=== PATIENT | male | born 1995 | race Caucasian/White ===

== ENCOUNTER 2019-01-04 12:29 | Emergency (ER) | payer OTHER ==
[2019-01-04 12:38] VITALS: BP 130/83
--- NOTE | 2019-01-04 12:57 | UC ---
Respiratory Complaint HPI - HPI Summary HPI Summary: cough x 2 weeks cough is dry , worse with deep breathing better with res cold symptoms for 2 months with nasal congestion , pnd, sinus pressure no fever, no chills - History of Current Complaint Chief Complaint: UCGeneralIllness Stated Complaint: COUGH,CHEST CONGESTION Time Seen by Provider: 01/04/19 12:45 Hx Obtained From: Patient Onset/Duration: Gradual Onset, Lasting Weeks - 2, Still Present Timing: Constant Severity Initially: Moderate Severity Currently: Moderate Pain Intensity: 7 Character: Cough: Nonproductive Aggravating Factors: Exertion, Deep Breaths Alleviating Factors: Nothing Associated Signs And Symptoms: Positive: Chills, Wheezing, URI, Nasal Congestion. Negative: Dyspnea, Fever - Allergies/Home Medications Allergies/Adverse Reactions: Allergies Allergy/AdvReac Type Severity Reaction Status Date / Time cetirizine [From Zyrtec] Allergy Shortness Verified 01/04/19 12:43 of Breath citalopram [From Celexa] Allergy Nausea Verified 01/04/19 12:43 clindamycin Allergy Nausea Verified 01/04/19 12:43 diphenhydramine Allergy Shortness Verified 01/04/19 12:43 [From Benadryl] of Breath fluticasone [From Flonase] Allergy Shortness Verified 01/04/19 12:43 of Breath loratadine [From Claritin] Allergy Shortness Verified 01/04/19 12:43 of Breath Penicillins Allergy Numbness Verified 01/04/19 12:43 And Tingling propranolol Allergy See Comment Verified 01/04/19 12:43 quetiapine [From Seroquel] Allergy Palpitation Verified 01/04/19 12:43 s sertraline [From Zoloft] Allergy Anxiety Verified 01/04/19 12:43 Home Medications: Home Medications Albuterol 0.5% CONC NEB.DEREK* 1 inh INH DAILY 01/04/19 [History Confirmed ] Albuterol HFA INHALER* [Ventolin HFA Inhaler*] 1 puff INH Q8H 01/04/19 [History Confirmed 01/04/19] Mirtazapine TAB* [Remeron TAB*] 1 tab PO QPM 01/04/19 [History Confirmed ] clonazePAM [Klonopin] 1 tab PO BID 01/04/19 [History Confirmed 01/04/19] PMH/Surg Hx/FS Hx/Imm Hx Respiratory History: Asthma Psychological History: Anxiety, Depression, Post Traumatic Stress Disorder - Surgical History Surgical History: None - Family History Known Family History: Negative: Diabetes - Social History Alcohol Use: None Substance Use Type: None Smoking Status (MU): Never Smoked Tobacco Review of Systems All Other Systems Reviewed And Are Negative: Yes Constitutional: Positive: Negative Skin: Positive: Negative Eyes: Positive: Negative ENT: Positive: Nasal Discharge, Sinus Congestion, Sinus Pain/Tenderness Respiratory: Positive: Cough Cardiovascular: Positive: Negative Is Patient Immunocompromised?: No Physical Exam Triage Information Reviewed: Yes Appearance: Well-Appearing, No Pain Distress, Well-Nourished Vital Signs: Initial Vital Signs Temp 97.9 F 01/04/19 12:33 Pulse 96 01/04/19 12:33 Resp 20 01/04/19 12:33 BP 130/83 01/04/19 12:33 Pulse Ox 100 01/04/19 12:33 Vital Signs Reviewed: Yes Eye Exam: Normal Eyes: Positive: Conjunctiva Clear ENT: Positive: Normal ENT inspection, Hearing grossly normal, Pharynx normal, Nasal drainage, TMs normal Neck exam: Normal Neck: Positive: Supple, Nontender, No Lymphadenopathy Respiratory: Positive: Chest non-tender, Lungs clear, Normal breath sounds, No respiratory distress Cardiovascular: Positive: RRR, No Murmur, Pulses Normal Abdominal Exam: Normal Diagnostics - Radiology No standard instances Radiology Interpretation Completed By: Radiologist Summary of Radiographic Findings: chest xray report : IMPRESSION: NO ACTIVE CARDIOPULMONARY DISEASE. Respiratory Course/Dx - Differential Dx/Diagnosis Provider Diagnosis: Bronchitis Discharge ED - Sign-Out/Discharge Documenting (check all that apply): Patient Departure All imaging exams completed and their final reports reviewed: Yes - Discharge Plan Condition: Stable Disposition: HOME Patient Education Materials: Acute Bronchitis (ED) Additional Instructions: follow up with your pcp in one week - Billing Disposition and Condition Condition: STABLE Disposition: Home
--- OUTSIDE RECORDS SUMMARY | 2019-01-04 13:56 | XMS REPORT | Continuity of Care Document ---
:1995 External Reference #:[id number] Author Name Pramod Tay MD Address [address] [place] [address] Care Team Providers Name Role Phone Ganesh Pascual MD - Psychiatry Care Team Information [employer] Noemi Benitez - Psychiatry Care Team Information [employer] [phone] Joselin Zuñiga PA - Medical Care Team Information [employer] [phone] Problems Active Problems Provider Date Borderline personality disorder Clare Martin PA-C Onset: 02/20/2016 Lorenzo de la Tourette's syndrome Lucía Smith RPAC Onset: 01/11/2017 Panic disorder Clare Martin PA-C Onset: 02/20/2016 Note: near psychosis Irritable bowel syndrome Clare Martin PA-C Onset: 02/20/2016 Gastroesophageal reflux disease Clare Martin PA-C Onset: 02/20/2016 Essential hypertension Clare Martin PA-C Onset: 03/11/2016 Note: associated with anxiety Cystic acne Lucía Smith RPAC Onset: 11/12/2016 Intermittent palpitations Lucía Smith RPAC Onset: 11/12/2016 Note: isolated PACs/PVCs Dental caries Lucía Smith RPAC Onset: 03/30/2017 Vitamin D deficiency Lucía Smith RPAC Onset: 05/26/2017 Anxiety state Lucía Smith RPAC Onset: 07/27/2017 Constipation Pramod Billings MD Onset: 12/14/2017 Irritable bowel syndrome characterized by Pramod Billings MD Onset: 2017 constipation Abdominal pain Pramod Billings MD Onset: 12/14/2017 Social History Type Date Description Comments Sex Unknown Tobacco Use Start: Unknown Never Smoked Cigarettes Smokeless Tobacco Never Used Smokeless Tobacco ETOH Use Denies alcohol use Recreational Drug Use Denies Drug Use Tobacco Use Start: Unknown Patient has never smoked Smoking Status Reviewed: 12/30/18 Patient has never smoked Allergies, Adverse Reactions, Alerts Active Allergies Reaction Severity Comments Date Lamotrigine unsure 02/19/2016 Sertraline 02/19/2016 Citalopram Increased anxiety 02/19/2016 Quetiapine unsure 02/19/2016 Loratadine 02/20/2016 Amoxicillin 09/02/2018 Clindamycin 09/02/2018 Medications Active Medications SIG Qnty Indications Ordering Date Provider Prednisolone Acetate 1 drop right eye 5ml H20.011 Pramod Tay MD 2018 4 times daily 1% Suspension Xylimelts 1 melt in mouth 3 90units Shauna Lux, 10/14/2018 550mg Disk times a day as , PHD needed Artificial Tears instill 1 drop in 15units H04.123 Pramod Tay MD 2018 1.4% each eye four Solution times a day as needed for dryness Ventolin HFA 2 puffs every 4 1inhaler Christopher Logan MD 09/23/2016 hours as needed 108(90Base) mcg/Act dyspnea Aerosol Albuterol Sulfate nebulized every 4 90ml J45.998 Christopher Logan MD 2016 hours as needed (2.5mg/3ML) 0.083% Nebulizer Clonazepam 1 by mouth twice 60tabs Dexter Hobson, 03/19/2016 1mg daily as needed M.D. Tablets ::: teva brand MDD 2 Mirtazapine take 1 tablet by Noemi Benitez 15mg mouth once daily Tablets at bedtime History Medications Miralax 1 scoops in 765units K59.00 Maxine Roper, 11/29/2018 - 3350NF Powder fluid 1x/day 12/27/2018 Acetylcysteine 3ml po bid for 180ml R68.2 Shauna Lux, 10/14/2018 - 200mg/ml thick mucus , PHD 10/19/2018 Solution T43.025A H04.123 Nystatin swish and gargle 180ml B37.0 Maci, 10/14/2018 - and swallow 5ml MD Shauna, 12/27/2018 032076Rjci/ML twice a day as PHD Suspension needed Diflucan 1 tab by mouth as 1tabs Maci, 10/14/2018 - 150mg once can repeat in MD Shauna, 12/27/2018 Tablets a week as needed PHD Vitamin D-3 once a day 90caps Christopher Logan MD 09/11/2018 - 1000Unit 10/11/2018 Capsules Clotrimazole 5 times a day for 70units B37.0 Christopher Logan MD 09/08/2018 - 10mg 14 days. do not 09/09/2018 Rosa chew or swallow whole tablet. Nystatin swish and gargle 180ml B37.0 Maci, 09/02/2018 - and swallow 5ml MD Shauna, 10/11/2018 521908Idxp/ML twice a day as PHD Suspension needed Augmentin ES-600 875mg twice a day 150ml Christopher Logan MD 08/16/2018 - for 10 days 08/23/2018 600-42.9mg/5ML Suspension Rec Senna-Docusate 1 by mouth twice a 15tabs K59.00 Christopher Logan MD 2018 - Sodium day constipation 08/02/2018 8.6-50mg Tablets Miralax 1 capful dissolve 238gm K59.00 Christopher Logan MD 08/02/2018 - 3350NF Powder in 4-8 oz of liquid 10/11/2018 by mouth every day as needed Immunizations CPT Code Status Date Vaccine Lot # 41291 Given Unknown Tdap injection Vital Signs Date Vital Result Comment 12/27/2018 11:31am Respiratory Rate 18 /min Height 67 inches 5'7" Weight 215.00 lb BMI (Body Mass Index) 33.7 kg/m2 BSA (Body Surface Area) 2.09 m2 [place] body weight in kilograms 67 kg 11/29/2018 11:36am BP Systolic Sitting Resting Right Arm 124 mmHg BP Diastolic Sitting Resting Right Arm 72 mmHg Body Temperature 98.6 F Heart Rate 90 /min Respiratory Rate 18 /min Height 67 inches 5'7" Weight 211.25 lb BMI (Body Mass Index) 33.1 kg/m2 BSA (Body Surface Area) 2.07 m2 [place] body weight in kilograms 67 kg Results Test Acquired Date Facility Test Result H/L Range Note CBC 11/02/2018 [facility] White Blood 6.7 K/uL Normal 3.4-10.5 1 W/Automated [address] [place] [address] [phone] Red Blood Count 5.10 M/uL Normal 4.20-5.80 Hemoglobin 15.7 gm/dL Normal 12.8-17.0 Hematocrit 44.0 % Normal 38.0-48.0 Mean Cell Volume 86.3 fl Normal 80.0-96.0 Mean Corpuscular HGB 30.8 pg Normal 27.0-33.0 Mean Corpuscular HGB Conc 35.7 g/dL Normal 31.7-36.0 Platelet Count 251 K/uL Normal 155-360 Red Cell Distri Width SD 38.5 fl Normal 36-51 Red Cell Distri Width %CV 12.3 % Normal 11.6-15.8 Mean Platelet Volume 9.8 fl Normal 6.6-10.6 Neut% 51.7 % Normal 33.0-73.0 Lymph % 35.9 % Normal 20.0-42.0 [place] % 9.4 % Normal 0.0-10.0 Eo% 2.1 % Normal 0.0-6.6 Bas% 0.6 % Normal 0.0-1.1 Immature Grans 0.3 % Normal 0.0-5.0 NRBC % 0.0 /100WBC < 10/ 100 WBC Neut# 3.48 K/uL Normal 1.8-7.0 Lymph # 2.41 K/uL Normal 1.0-4.0 [place] # 0.63 K/uL Normal 0.0-0.8 Eos # 0.14 K/uL Normal 0.0-0.5 Baso # 0.04 K/uL Normal 0.0-0.1 Immature Grans Absolute 0.02 K/uL NRBC # 0.00 K/uL Comprehensive 11/02/2018 [facility] Glucose 105 mg/dL Normal 74-106 Metabolic Panel [address] [place] [address] [phone] BUN 8 mg/dL Normal 7-18 Creatinine 1.0 mg/dL Normal 0.6-1.3 Glom Filtration Rate, Estimate >60 mL/min >60 If >60 mL/min >60 2 BUN/Creat 8.0 ratio Sodium 141 mmol/L Normal 136-145 Potassium 3.6 mmol/L Normal 3.5-5.1 Chloride 107 mmol/L Normal 98-107 Carbon Dioxide 28 mmol/L Normal 21-32 Anion Gap 6 mEq/L Low 8-16 Calcium 9.3 mg/dL Normal 8.5-10.1 Total Protein 8.7 g/dL High 6.4-8.2 Albumin 4.1 g/dL Normal 3.4-5.0 Globulin 4.6 g/dL High 1.9-4.3 Alb/Glob 0.9 ratio Bilirubin,Total 0.7 mg/dL Normal 0.2-1.0 Sgot/Ast 18 U/L Normal 15-37 SGPT/Alt 27 U/L Normal 12-78 Alkaline Phosphatase 104 U/L Normal 45-117 Laboratory test 11/02/2018 [facility] Troponin-I < 0.015 [address] ng/[place] [address] [phone] CBC W/Automated 09/17/2018 [facility] White Blood 10.8 K/uL High 3.4-[address] Count 0.5 [place] [address] [phone] Red Blood Count 5.09 M/uL Normal 4.20-5.80 Hemoglobin 15.7 gm/dL Normal 12.8-17.0 Hematocrit 44.7 % Normal 38.0-48.0 Mean Cell Volume 87.8 fl Normal 80.0-96.0 Mean Corpuscular HGB 30.8 pg Normal 27.0-33.0 Mean Corpuscular HGB Conc 35.1 g/dL Normal 31.7-36.0 Platelet Count 248 K/uL Normal 155-360 Red Cell Distri Width SD 39.5 fl Normal 36-51 Red Cell Distri Width %CV 12.2 % Normal 11.6-15.8 Mean Platelet Volume 9.8 fl Normal 6.6-10.6 Neut% 70.8 % Normal 33.0-73.0 Lymph % 20.0 % Normal 20.0-42.0 Cidra % 7.3 % Normal 0.0-10.0 Eo% 1.2 % Normal 0.0-6.6 Bas% 0.3 % Normal 0.0-1.1 Immature Grans 0.4 % Normal 0.0-5.0 NRBC % 0.0 /100WBC < 10/ 100 WBC Neut# 7.64 K/uL High 1.8-7.0 Lymph # 2.16 K/uL Normal 1.0-4.0 Cidra # 0.79 K/uL Normal 0.0-0.8 Eos # 0.13 K/uL Normal 0.0-0.5 Baso # 0.03 K/uL Normal 0.0-0.1 Immature Grans Absolute 0.04 K/uL NRBC # 0.00 K/uL Comprehensive 09/17/2018 [facility] Glucose 105 mg/dL Normal 74-106 Metabolic Panel [address] [place] [address] [phone] BUN 8 mg/dL Normal 7-18 Creatinine 0.9 mg/dL Normal 0.6-1.3 Glom Filtration Rate, Estimate >60 mL/min >60 If >60 mL/min >60 5 BUN/Creat 8.8 ratio Sodium 138 mmol/L Normal 136-145 Potassium 4.0 mmol/L Normal 3.5-5.1 Chloride 106 mmol/L Normal 98-107 Carbon Dioxide 27 mmol/L Normal 21-32 Anion Gap 5 mEq/L Low 8-16 Calcium 9.4 mg/dL Normal 8.5-10.1 Total Protein 8.7 g/dL High 6.4-8.2 Albumin 3.9 g/dL Normal 3.4-5.0 Globulin 4.8 g/dL High 1.9-4.3 Alb/Glob 0.8 ratio Bilirubin,Total 0.5 mg/dL Normal 0.2-1.0 Sgot/Ast 15 U/L Normal 15-37 SGPT/Alt 31 U/L Normal 12-78 Alkaline Phosphatase 102 U/L Normal 45-117 Laboratory test 09/17/2018 [facility] Lipase 59 U/L Normal 56-289 finding [address] [place] [address] [phone] Ua RFX Micro & 09/17/2018 [facility] Urine Color YELLOW Yellow Culture II [address] [place] [address] [phone] Urine Clarity CLEAR Clear Urine Glucose - Dipstick NEGATIVE mg/dL Negative Urine Bilirubin - Dipstick NEGATIVE Negative Urine Ketone NEGATIVE mg/dL Negative Urine Specific [place] 1.010 Normal 1.010-1.030 Urine Blood NEGATIVE Negative Urine PH 5.5 Low 6.5-7.5 Urine Protein - Dipstick NEGATIVE mg/dL Negative Urine Urobilinogen - Dipstick 0.2 E.U./dL Normal 0.2-1.0 Urine Nitrite - Dipstick NEGATIVE Negative Urine Leuk Esterase NEGATIVE Negative Source: URINE, CLEAN CAT <SEE NOTE> 6 [facility] Vitamin 10.9 Low 30.0-100.0 7, 8 test finding [address] [facility] D,25-Hydroxy ng/[place] [address] [phone] Basic 09/08/[address] [facility] [address] Glucose 95 Normal 74-[address] mg/dL Panel [place], [place] [id number] [phone] BUN 8 mg/dL Normal 7-18 Creatinine 0.9 mg/dL Normal 0.6-1.3 Glom Filtration Rate, Estimate >60 mL/min >60 If >60 mL/min >60 9 BUN/Creat 8.8 ratio Sodium 142 mmol/L Normal 136-145 Potassium 3.8 mmol/L Normal 3.5-5.1 Chloride 110 mmol/L High 98-107 Carbon Dioxide 24 mmol/L Normal 21-32 Anion Gap 8 mEq/L Normal 8-16 Calcium 8.8 mg/dL Normal 8.5-10.1 Comprehensive [place] 09/02/[address] [facility] [address] Anti-Dna <1 IU/mL 0-9 10 , [address] [place] [address] (Cqwkvo) [phone] SM Antibody <0.2 AI 0.0-0.9 PET[employer]ATOR Antibody <0.2 AI 0.0-0.9 Sjogrens Antibodies (Ssa) <0.2 AI 0.0-0.9 Antichromatin Antibodies 0.3 AI 0.0-0.9 Janet-1 Antibody <0.2 AI 0.0-0.9 Sjogrens Antibodies (SSB) <0.2 AI 0.0-0.9 Centromere B Antibodies < 0.2 AI 0.0-0.9 Scleroderma Antibodies, SCL-70 0.2 AI 0.0-0.9 See below: (SEE NOTE) 12 Ua RFX Micro & Culture 08/02/2018 [facility] [address] Urine Color STRAW Yellow 13 II [address] [place] [address] [phone] Urine Clarity CLEAR Clear Urine Glucose - Dipstick NEGATIVE mg/dL Negative Urine Bilirubin - Dipstick NEGATIVE Negative Urine Ketone NEGATIVE mg/dL Negative Urine Specific [place] <= 1.005 Low 1.010-1.030 Urine Blood NEGATIVE Negative Urine PH 6.0 Low 6.5-7.5 Urine Protein - Dipstick NEGATIVE mg/dL Negative Urine Urobilinogen - Dipstick 0.2 E.U./dL Normal 0.2-1.0 Urine Nitrite - Dipstick NEGATIVE Negative Urine Leuk Esterase NEGATIVE Negative Source: URINE, CLEAN CAT <SEE NOTE> 14 1 CHEST PAINS, SOB 2 Note: Persistent reduction for 3 months or more in an eGFR <60 mL/min/1.73 m2 defines CKD. Patients with eGFR values >/=60 mL/min/1.73 m2 may also have CKD if evidence of persistent proteinuria is present. The original MDRD equation for estimated GFR is not valid for patients less than 18 years of age. Additional information may be found at www.kdoqi.org. 3 0.0 - 0.045 ng/mL: Normal 0.046 - 0.5 ng/mL: Suggestive 0.6 - 1.5 ng/mL: Consistent 4 ABD PAIN 5 Note: Persistent reduction for 3 months or more in an eGFR <60 mL/min/1.73 m2 defines CKD. Patients with eGFR values >/=60 mL/min/1.73 m2 may also have CKD if evidence of persistent proteinuria is present. The original MDRD equation for estimated GFR is not valid for patients less than 18 years of age. Additional information may be found at www.kdoqi.org. 6 URINE, CLEAN CATCH 7 E55.9 8 Vitamin D deficiency has been defined by the [place] of Medicine and an Endocrine Society practice guideline as a level of serum 25-OH vitamin D less than 20 ng/mL (1,2). The Endocrine Society went on to further define vitamin D insufficiency as a level between 21 and 29 ng/mL (2). 1. IOM ([place] of [employer]). 2010. Dietary reference intakes for calcium and D. [place]: The National Academies Press. 2. Shereen MF, Audrey VALENZUELA, Anni RUIZ, et al. Evaluation, treatment, and prevention of vitamin D deficiency: an Endocrine Society clinical practice guideline. JCEM. 2010; 96(7):1911-30. Performed at: RN - [facility] [address] [id number] Brush Trimming Machine Setter: Stefanie Whitfield MD, Phone: [phone] Note: Persistent reduction for 3 months or more in an eGFR <60 mL/min/1.73 m2 defines CKD. Patients with eGFR values >/=60 mL/min/1.73 m2 may also have CKD if evidence of persistent proteinuria is present. The original MDRD equation for estimated GFR is not valid for patients less than 18 years of age. Additional information may be found at www.kdoqi.org. 10 R68.2 11 Negative <5 Equivocal 5 - 9 Positive >9 12 Autoantibody Disease Association Condition Frequency --------- Antinuclear Antibody, SLE, mixed connective Direct (ADAMARIS-D) tissue diseases --------- dsDNA SLE 40 - 60% --------- Chromatin Drug induced SLE 90% SLE 48 - 97% --------- SSA (Ro) SLE 25 - 35% Sjogren's Syndrome 40 - 70% Lupus 100% --------- SSB (La) SLE 10% Sjogren's Syndrome 30% --------- Sm (anti-Snell) SLE 15 - 30% --------- [employer]ATOR Mixed Connective Tissue Disease 95% (U1 nRNP, SLE 30 - 50% anti-ribonucleoprotein) Polymyositis and/or Dermatomyositis 20% --------- Scl-70 (antiDNA Scleroderma (diffuse) 20 - 35% topoisomerase) Crest 13% --------- Janet-1 Polymyositis and/or Dermatomyositis 20 - 40% --------- Centromere B Scleroderma - Crest variant 80% Performed at: RN - [facility] [address] [id number] Brush Trimming Machine Setter: Stefanie Whitfield MD, Phone: [phone] 13 R30.0 14 URINE, CLEAN CATCH Procedures Date Code Description Status 12/30/201892004 Eye Exam Est Patient Comprehensive Completed 12/26/201839014 Eye Exam Est Patient Comprehensive Completed 10/24/2018 00257 Eye Exam Est Patient Comprehensive Completed 09/02/201811832 Eye Exam Est Patient Comprehensive Completed Medical Devices Description No Information Available Encounters Type Date Location Provider Dx Diagnosis Office Visit 12/27/2018 Family Joselin Powell PA J20.9 Acute bronchitis, 11:30a Polo CROSS unspecified 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, right eye Office Visit 12/08/2018 Ophthalmology Tay, B30.9 Viral 2:30p MD Parmod conjunctivitis, unspecified Office Visit 11/29/2018 Family Ra Zuñiga, R00.2 Palpitations 11:30a GUR[address] J06.9 Acute upper respiratory infection, unspecified K59.00 Constipation, unspecified Office Visit 10/11/2018 11:00a Family Christopher Arnold B37.0 Candidal Polo CROSS MD stomatitis Office Visit 09/13/2018 1:15p GI Manuelito, R10.9 Unspecified MD Pramod abdominal pain K59.00 Constipation, unspecified R63.5 Abnormal weight gain Office Visit 09/08/2018 1:00p Christopher Elizabeth B37.0 Candidal Polo CROSS MD stomatitis E55.9 Vitamin D deficiency, unspecified Office Visit 09/02/2018 1:45p Joselin Nicholas B37.0 Candidal Polo CAGLE stomatitis R68.2 Dry mouth, unspecified Office Visit 08/23/2018 11:30a Christopher Elizabeth, F41.9 Anxiety disorder, Polo CROSS MD unspecified Office Visit 08/02/2018 10:15a Christopher Elizabeth, K59.00 Constipation, Polo CROSS MD unspecified R30.0 Dysuria F41.9 Anxiety disorder, unspecified Assessments Date Code Description Provider 12/30/2018 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, right eye Pramod Tay MD 12/27/2018 J20.9 Acute bronchitis, unspecified Joselin Zuñiga PA 12/27/2018 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, right eye Joselin Zuñiga PA 12/26/2018 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, right eye Pramod Tay MD 12/08/2018 B30.9 Viral conjunctivitis, unspecified Pramod Tay MD 11/29/2018 R00.2 Palpitations Joselin Zuñiga PA 11/29/2018 J06.9 Acute upper respiratory infection, unspecified Joselin Zuñiga PA 11/29/2018 K59.00 Constipation, unspecified Joselin Zuñiga PA 10/24/2018 H04.123 Dry eye syndrome of bilateral lacrimal glands Pramod Tay MD 10/11/2018 B37.0 Candidal stomatitis Christopher Logna MD 09/13/2018 R10.9 Unspecified abdominal pain Pramod Billings MD 09/13/2018 K59.00 Constipation, valerieified Pramod Billings MD 09/13/2018 R63.5 Abnormal weight gain Pramod Billings MD 09/08/2018 B37.0 Candidal stomatitis Christopher Logan MD 09/08/2018 E55.9 Vitamin D deficiency, unspecified Christopher Logan MD 09/02/2018 B37.0 Candidal stomatitis Joselin Zuñiga PA 09/02/2018 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, right eye Pramod Tay MD 09/02/2018 R68.2 Dry mouth, unspecified Joselin Zuñiga PA 09/02/2018 H04.123 Dry eye syndrome of bilateral lacrimal glands Pramod Tay MD 08/23/2018 F41.9 Anxiety disorder, unspecified Christopher Logan MD 08/02/2018 K59.00 Constipation, unspecified Christopher Logan MD 08/02/2018 R30.0 Dysuria Christopher Logan MD 08/02/2018 F41.9 Anxiety disorder, unspecified Christopher Logan MD Plan of Treatment Future Appointment(s):01/30/2019 10:15 am - Pramod Tay MD at [id number]/ 05/2019 1:00 pm - Mele Davis M.D., FACC at Cardiology [id number] 1:15 pm - Pramod Billings MD at 12/30/2018 - Pramod Tay MD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, right eyeComments:- prednisolone 1 drop right eye 4 times for 1 week; then- prednisolone 1 drop right eye 3 times daily for 1 week; then- prednisolone 1 drop right eye 2 times daily for 1 week;then- prednisolone 1 drop right eye 1 time daily for 1 week; then stop- ok to stop cyclopentolate ( red)- lab work up- 1 month return visit- cyclopentolate (red top) 1 drop right eye at night for 3 days- will work-up as recurrenceFollow up:1 month return visit; short Functional Status Description No Information Available Mental Status Description No Information Available Referrals Refer to Dr Reason for Referral Status Appt Date Mele Davis MD FACC Scheduled 02/02/[address] [place] [address] [phone]
--- OUTSIDE RECORDS SUMMARY | 2019-01-04 13:57 | XMS REPORT | Continuity of Care Document ---
:1995 External Reference #:[id number] Author Name Pramod Tay MD Address [address] [place] [address] Care Team Providers Name Role Phone Ganesh Pascual MD - Psychiatry Care Team Information Embedded Hardware Engineer Noemi Benitez - Psychiatry Care Team Information Embedded Hardware Engineer [phone] Joselin Zuñiga PA - Medical Care Team Information Embedded Hardware Engineer [phone] Problems Active Problems Provider Date Borderline personality [...] Patient has never smoked Smoking Status Reviewed: 12/08/18 Patient has never smoked Allergies, Adverse Reactions, Alerts Active Allergies Reaction Severity Comments Date Lamotrigine unsure 02/19/2016 Sertraline 02/19/2016 Citalopram Increased anxiety 02/19/2016 Quetiapine unsure 02/19/2016 Loratadine 02/20/2016 Amoxicillin 09/02/2018 Clindamycin 09/02/2018 Medications Active Medications SIG Qnty Indications Ordering Date Provider Miralax 1 scoops in fluid 765units K59.00 Maxine Roper, 11/29/2018 3350NF Powder 1x/day MD Sheehan 1 melt in mouth 3 90units Shauna Lux, 10/14/2018 550mg Disk times a day as , PHD needed Diflucan 1 tab by mouth as 1tabs Shauna Lux, 10/14/2018 150mg once can repeat , PHD Tablets in a week as needed Nystatin swish and gargle 180ml B37.0 Shauna Lux, 10/14/2018 and swallow 5ml , PHD [id number]/ML twice a day as Suspension needed Artificial Tears instill 1 drop in [...] once daily Tablets at bedtime History Medications Acetylcysteine 3ml po bid for 180ml R68.2 Shauna Lux, 10/14/2018 - 200mg/ml thick mucus , PHD 10/19/2018 Solution T43.025A H04.123 Vitamin D-3 once a day 90caps Christopher Logan, 09/11/2018 - 1000Unit 10/11/2018 Capsules Clotrimazole 5 times a day for 14 70units B37.0 Christopher Logan, 09/08/2018 - 10mg days. do not chew or 09/09/2018 Rosa swallow whole tablet. Nystatin swish and gargle and 180ml B37.0 Maci, 09/02/2018 - swallow 5ml twice a MD Shauna, 10/11/2018 988601Wnjp/ML day as needed PHD Suspension Augmentin ES-600 875mg twice a day 150ml Christopher Logan, 08/16/2018 - for 10 days 08/23/2018 600-42.9mg/5ML Suspension Rec Senna-Docusate 1 by mouth twice a 15tabs K59.00 Christopher Logan, 08/02/2018 - Sodium day constipation 08/02/2018 8.6-50mg Tablets Miralax 1 capful dissolve in 238gm K59.00 Christopher Logan, 08/02/2018 - 3350NF Powder 4-8 oz of liquid by 10/11/2018 mouth every day as needed Immunizations CPT Code Status Date Vaccine Lot # [id number] Given Unknown Tdap injection Vital Signs Date Vital Result Comment 11/29/2018 11:36am BP Systolic Sitting Resting Right Arm 124 mmHg BP Diastolic Sitting Resting Right Arm 72 mmHg Body Temperature 98.6 F Heart Rate 90 /min Respiratory Rate 18 /min Height 67 inches 5'7" Weight 211.25 lb BMI (Body Mass Index) 33.1 kg/m2 BSA (Body Surface Area) 2.07 m2 [place] body weight in kilograms 67 kg 10/11/2018 10:59am BP Systolic 123 mmHg BP Diastolic 71 mmHg Body Temperature 97.4 F Heart Rate 88 /min Respiratory Rate 18 /min Height 67 inches 5'7" Weight 208.38 lb BMI (Body Mass Index) 32.6 kg/m2 BSA (Body Surface Area) 2.06 m2 [place] body weight in kilograms 67 kg O2 % BldC Oximetry 98 % Ra Results Test Date Facility Test Result H/L Range Note CBC 11/02/2018 [facility] White Blood 6.7 K/uL Normal 3.4-10.5 1 W/Automated [address] [place] [address] [phone] Red Blood Count 5.10 M/uL Normal 4.20-5.80 [...] 33.0-73.0 Lymph % 35.9 % Normal 20.0-42.0 [place] % 9.4 % Normal 0.0-10.0 Eo% 2.1 % Normal 0.0-6.6 Bas% 0.6 % Normal 0.0-1.1 Immature Grans 0.3 % Normal 0.0-5.0 NRBC % 0.0 /100WBC < 10/ 100 WBC Neut# 3.48 K/uL Normal 1.8-7.0 Lymph # 2.41 K/uL Normal 1.0-4.0 [place] # 0.63 K/uL Normal 0.0-0.8 Eos # 0.14 K/uL Normal 0.0-0.5 Baso # 0.04 K/uL Normal 0.0-0.1 Immature Grans Absolute 0.02 K/uL NRBC # 0.00 K/uL Comprehensive 11/02/2018 [facility] Glucose 105 mg/dL Normal 74-106 Metabolic Panel [address] [place] [address] [phone] BUN 8 mg/dL Normal 7-18 Creatinine 1.0 [...] 104 U/L Normal 45-117 Laboratory test 11/02/2018 [facility] Troponin-I < 0.015 [address] ng/[place] [address] [phone] CBC W/Automated 09/17/2018 [facility] White Blood 10.8 K/uL High 3.4-[address] Count 0.5 [place] [address] [phone] Red Blood Count 5.09 M/uL Normal 4.20-5.80 [...] 33.0-73.0 Lymph % 20.0 % Normal 20.0-42.0 [place] % 7.3 % Normal 0.0-10.0 Eo% 1.2 % Normal 0.0-6.6 Bas% 0.3 % Normal 0.0-1.1 Immature Grans 0.4 % Normal 0.0-5.0 NRBC % 0.0 /100WBC < 10/ 100 WBC Neut# 7.64 K/uL High 1.8-7.0 Lymph # 2.16 K/uL Normal 1.0-4.0 [place] # 0.79 K/uL Normal 0.0-0.8 Eos # 0.13 K/uL Normal 0.0-0.5 Baso # 0.03 K/uL Normal 0.0-0.1 Immature Grans Absolute 0.04 K/uL NRBC # 0.00 K/uL Comprehensive 09/17/2018 [facility] Glucose 105 mg/dL Normal 74-106 Metabolic Panel [address] [place] [address] [phone] BUN 8 mg/dL Normal 7-18 Creatinine 0.9 [...] 102 U/L Normal 45-117 Laboratory test 09/17/2018 [facility] Lipase 59 U/L Normal 56-289 finding [address] [place] [address] [phone] Ua RFX Micro & 09/17/2018 [facility] Urine Color YELLOW Yellow Culture II [address] [place], [place] [id number] [phone] Urine Clarity CLEAR Clear Urine Glucose - Dipstick NEGATIVE mg/dL Negative Urine Bilirubin - Dipstick NEGATIVE Negative Urine Ketone NEGATIVE mg/dL Negative Urine Specific [place] 1.010 Normal 1.010-1.030 Urine Blood NEGATIVE Negative Urine PH 5.5 Low 6.5-7.5 Urine Protein - Dipstick NEGATIVE mg/dL Negative Urine Urobilinogen - Dipstick 0.2 E.U./dL Normal 0.2-1.0 Urine Nitrite - Dipstick NEGATIVE Negative Urine Leuk Esterase NEGATIVE Negative Source: URINE, CLEAN CAT <SEE NOTE> 6 Laboratory 09/08/2018 [facility] [address] Vitamin 10.9 Low 30.0-100.0 7, 8 test finding [address] [facility] D,25-Hydroxy ng/[place] [address] [phone] Basic [facility]/08[facility] [facility] [address] Glucose 95 Normal 74-[address] mg/[place] [address] [phone] BUN 8 mg/dL Normal 7-18 Creatinine 0.9 mg/dL Normal 0.6-1.3 Glom Filtration Rate, Estimate >60 mL/min >60 If >60 mL/min >60 9 BUN/Creat 8.8 ratio Sodium 142 mmol/L Normal 136-145 Potassium 3.8 mmol/L Normal 3.5-5.1 Chloride 110 mmol/L High 98-107 Carbon Dioxide 24 mmol/L Normal 21-32 Anion Gap 8 mEq/L Normal 8-16 Calcium 8.8 mg/dL Normal 8.5-10.1 Comprehensive [place] 09/02/2018 [facility] [address] Anti-Dna <1 IU/mL 0-9 10 , [address] [place] [address] (Uhksxx) [phone] SM Antibody <0.2 AI 0.0-0.9 CLERGY MEMBER Antibody <0.2 AI 0.0-0.9 Sjogrens Antibodies (Ssa) <0.2 AI 0.0-0.9 Antichromatin Antibodies 0.3 AI 0.0-0.9 Janet-1 Antibody <0.2 AI 0.0-0.9 Sjogrens Antibodies (SSB) <0.2 AI 0.0-0.9 Centromere B Antibodies < 0.2 AI 0.0-0.9 Scleroderma Antibodies, SCL-70 0.2 AI 0.0-0.9 See below: (SEE NOTE) 12 Ua RFX Micro & Culture 08/02/2018 [facility] [address] Urine Color STRAW Yellow 13 II [address] [place] [id number] [phone] Urine Clarity CLEAR Clear Urine Glucose - Dipstick NEGATIVE mg/dL Negative Urine Bilirubin - Dipstick NEGATIVE Negative Urine Ketone NEGATIVE mg/dL Negative Urine Specific [place] <= 1.005 Low 1.010-1.030 Urine Blood NEGATIVE [...] D deficiency has been defined by the [place] of [employer] and an Endocrine Society practice guideline as a level of serum 25-OH vitamin D less than 20 ng/mL (1,2). The Endocrine Society went on to further define vitamin D insufficiency as a level between 21 and 29 ng/mL (2). 1. IOM ([place] of Medicine). 2010. Dietary reference intakes for calcium and D. [place]: The National Academies Press. 2. Shereen DEL TORO, Audrey VALENZUELA, Anni RUIZ, et al. Evaluation, treatment, and prevention of vitamin D deficiency: an Endocrine Society clinical practice guideline. JCEM. 2010; 96(7):1911-30. Performed at: - [facility] [id number] Sleeve Machine Tender: Stefanie Whitfield MD, Phone: [phone] Note: Persistent reduction for 3 months [...] Sm (anti-Snell) SLE 15 - 30% --------- CLERGY MEMBER Mixed Connective Tissue Disease 95% (U1 nRNP, SLE 30 - 50% anti-ribonucleoprotein) Polymyositis and/or Dermatomyositis 20% --------- Scl-70 (antiDNA Scleroderma (diffuse) 20 - 35% topoisomerase) Crest 13% --------- Janet-1 Polymyositis and/or Dermatomyositis 20 - 40% --------- Centromere B Scleroderma - Crest variant 80% Performed at: RN - [facility] [address] [id number] Sleeve Machine Tender: Stefanie Whitfield MD, Phone: [phone] 13 R30.0 14 URINE, CLEAN CATCH Procedures Date Code Description Status 10/24/2018 02300 Eye Exam Est Patient Comprehensive Completed 09/02/2018 01396 Eye Exam Est Patient Comprehensive Completed Medical Devices Description No Information Available Encounters Type Date Location Provider Dx Diagnosis Office Visit 12/08/2018 Ophthalmology Pramod Tay, B30.9 Viral 2:30p conjunctivitis, unspecified Office Visit 11/29/2018 Family Medicine Joselin Baum, R00.2 Palpitations 11:30a AMERICA CAGLE J06.9 Acute upper respiratory infection, unspecified K59.00 Constipation, unspecified Office Visit 10/11/2018 11:00a [facility] Medicine Christopher Logan B37.0 Candidal Polo CROSS MD stomatitis Office Visit 09/13/2018 1:15p GI Manuelito, R10.9 Unspecified MD Pramod abdominal pain K59.00 Constipation, unspecified R63.5 Abnormal weight gain Office Visit 09/08/2018 1:00p [facility] Christopher Arnold B37.0 Candidal Polo CROSS MD stomatitis E55.9 Vitamin D deficiency, unspecified Office Visit 09/02/2018 1:45p [facility] Joselin Powell B37.0 Candidal Polo CAGLE stomatitis R68.2 Dry mouth, unspecified Office Visit 08/23/2018 11:30a [facility] Christopher Arnold, F41.9 Anxiety disorder, Polo CROSS MD unspecified Office Visit 08/02/2018 10:15a [facility] Medicine Christopher Logan K59.00 Constipation, Polo CROSS MD unspecified R30.0 Dysuria F41.9 Anxiety disorder, unspecified Office Visit 06/16/2018 11:30a Ophthalmology Pramod Tay, H04.123 Dry eye syndrome MD of bilateral lacrimal glands 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, right eye Assessments Date Code Description Provider 12/08/2018 B30.9 Viral conjunctivitis, unspecified Pramod Tay MD 11/29/2018 R00.2 Palpitations Joselin Zuñiga PA 11/29/2018 J06.9 Acute upper respiratory infection, unspecified Joselin Zuñiga PA 11/29/2018 K59.00 Constipation, unspecified Joselin Zuñiga PA 10/24/2018 H04.123 Dry eye syndrome of bilateral lacrimal glands Pramod Tay MD 10/11/2018 B37.0 Candidal stomatitis Christopher Logan MD 09/13/2018 R10.9 Unspecified abdominal pain Pramod Billings MD 09/13/2018 K59.00 Constipation, unspecified Pramod Billings MD 09/13/2018 R63.5 Abnormal weight [...] F41.9 Anxiety disorder, unspecified Christopher Logan MD 06/16/2018 H04.123 Dry eye syndrome of bilateral lacrimal glands Pramod Tay MD 06/16/2018 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, right eye Pramod Tay MD Plan of Treatment Future Appointment(s):02/02/2019 1:00 pm - Mele Davis M.D., FACC at Cardiology [facility]yzfe0601/16/2019 1:15 pm - Pramod Billings MD at 02/21/2019 1: 00 pm - Christopher Logan MD at [facility]12/08/2018 - Pramod Tay MDB30.9 Viral conjunctivitis, unspecifiedComments:- could be consistent with ekc ; bilateral; pal, follicular; no dendrite- warm compresses- can use preservative free artificial tears every few hours- can use neomycin/polymyxin/ dexamethasone 1 drop left eye 3 times daily- will typically take ~ 10-14 days to help Functional Status Description No Information Available Mental Status Description No Information Available Referrals Refer to Reason for Referral Status Appt Date Mele Davis MD [facility] Scheduled 02/02/[address] [place] [address] [phone]
--- OUTSIDE RECORDS SUMMARY | 2019-01-04 13:57 | XMS REPORT | Continuity of Care Document ---
:1993 External Reference #:[id number] Author Name Pramod Tay MD Address [address] [place] [address] Care Team Providers Name Role Phone Ganesh Pascual MD - Psychiatry Care Team Information Marketing Strategy Lead Noemi Benitez - Psychiatry Care Team Information Marketing Strategy Lead [phone] Joselin Zuñiga PA - Medical Care Team Information Marketing Strategy Lead [phone] Problems Active Problems Provider Date Borderline personality [...] Patient has never smoked Smoking Status Reviewed: 12/27/18 Patient has never smoked Allergies, Adverse Reactions, [...] - and swallow 5ml MD Shauna, 12/27/2018 437200Ikss/ML twice a day as PHD Suspension needed [...] - and swallow 5ml MD Shauna, 10/11/2018 417996Kuxd/ML twice a day as PHD Suspension needed [...] CPT Code Status Date Vaccine Lot # [id number] Given Unknown Tdap injection Vital Signs Date Vital Result Comment 12/27/2018 11:31am Respiratory Rate 18 /min Height 67 inches 5'7" Weight 215.00 lb BMI (Body Mass Index) 33.7 kg/m2 BSA (Body Surface Area) 2.09 m2 [place] body weight in kilograms 67 kg 11/29/2018 11:36am BP Systolic Sitting Resting Right Arm 124 mmHg BP Diastolic Sitting Resting Right Arm 72 mmHg Body Temperature 98.6 F Heart Rate 90 /min Respiratory Rate 18 /min Height 67 inches 5'7" Weight 211.25 lb BMI (Body Mass Index) 33.1 kg/m2 BSA (Body Surface Area) 2.07 m2 [place] body weight in kilograms 67 kg Results Test Acquired Date Facility Test Result H/L Range Note CBC 11/02/2018 [facility] White Blood 6.7 K/uL Normal 3.4-10.5 1 W/Automated [address] [place] [address] [phone] Red Blood Count 5.10 M/uL Normal 4.20-5.80 [...] 33.0-73.0 Lymph % 35.9 % Normal 20.0-42.0 [place] % 9.4 % Normal 0.0-10.0 Eo% 2.1 % Normal 0.0-6.6 Bas% 0.6 % Normal 0.0-1.1 Immature Grans 0.3 % Normal 0.0-5.0 NRBC % 0.0 /100WBC < 10/ 100 WBC Neut# 3.48 K/uL Normal 1.8-7.0 Lymph # 2.41 K/uL Normal 1.0-4.0 [place] # 0.63 K/uL Normal 0.0-0.8 Eos # 0.14 K/uL Normal 0.0-0.5 Baso # 0.04 K/uL Normal 0.0-0.1 Immature Grans Absolute 0.02 K/uL NRBC # 0.00 K/uL Comprehensive 11/02/2018 [facility] Glucose 105 mg/dL Normal 74-106 Metabolic Panel [address] [place] [address] [phone] BUN 8 mg/dL Normal 7-18 Creatinine 1.0 [...] 104 U/L Normal 45-117 Laboratory test 11/02/2018 [facility] Troponin-I < 0.015 [address] ng/[place] [address] [phone] CBC W/Automated 09/17/2018 [facility] White Blood 10.8 K/uL High 3.4-[address] Count 0.5 [place] [address] [phone] Red Blood Count 5.09 M/uL Normal 4.20-5.80 [...] 33.0-73.0 Lymph % 20.0 % Normal 20.0-42.0 [place] % 7.3 % Normal 0.0-10.0 Eo% 1.2 % Normal 0.0-6.6 Bas% 0.3 % Normal 0.0-1.1 Immature Grans 0.4 % Normal 0.0-5.0 NRBC % 0.0 /100WBC < 10/ 100 WBC Neut# 7.64 K/uL High 1.8-7.0 Lymph # 2.16 K/uL Normal 1.0-4.0 [place] # 0.79 K/uL Normal 0.0-0.8 Eos # 0.13 K/uL Normal 0.0-0.5 Baso # 0.03 K/uL Normal 0.0-0.1 Immature Grans Absolute 0.04 K/uL NRBC # 0.00 K/uL Comprehensive 09/17/2018 [facility] Glucose 105 mg/dL Normal 74-106 Metabolic Panel [address] [place] [address] [phone] BUN 8 mg/dL Normal 7-18 Creatinine 0.9 [...] 102 U/L Normal 45-117 Laboratory test 09/17/2018 [facility] Lipase 59 U/L Normal 56-289 finding [address] [place] [address] [phone] Ua RFX Micro & 09/17/2018 [facility] Urine Color YELLOW Yellow Culture II [address] [place] [address] [phone] Urine Clarity CLEAR Clear Urine Glucose - Dipstick NEGATIVE mg/dL Negative Urine Bilirubin - Dipstick NEGATIVE Negative Urine Ketone NEGATIVE mg/dL Negative Urine Specific [place] 1.010 Normal 1.010-1.030 Urine Blood NEGATIVE Negative Urine PH 5.5 Low 6.5-7.5 Urine Protein - Dipstick NEGATIVE mg/dL Negative Urine Urobilinogen - Dipstick 0.2 E.U./dL Normal 0.2-1.0 Urine Nitrite - Dipstick NEGATIVE Negative Urine Leuk Esterase NEGATIVE Negative Source: URINE, CLEAN CAT <SEE NOTE> 6 [facility] Vitamin 10.9 Low 30.0-100.0 7, 8 test finding [address] [facility] D,25-Hydroxy ng/[place] [address] [phone] Basic 09/08/2018 [facility] [address] Glucose 95 Normal 74-106 [address] mg/dL Panel [place], [place] [address] [phone] BUN 8 mg/dL Normal 7-18 Creatinine 0.9 mg/dL Normal 0.6-1.3 Glom Filtration Rate, Estimate >60 mL/min >60 If >60 mL/min >60 9 BUN/Creat 8.8 ratio Sodium 142 mmol/L Normal 136-145 Potassium 3.8 mmol/L Normal 3.5-5.1 Chloride 110 mmol/L High 98-107 Carbon Dioxide 24 mmol/L Normal 21-32 Anion Gap 8 mEq/L Normal 8-16 Calcium 8.8 mg/dL Normal 8.5-10.1 Comprehensive [place] 09/02/2018 [facility] [address] Anti-Dna <1 IU/mL 0-9 10 , [address] [place] [address] (Gjyfsm) [phone] SM Antibody <0.2 AI 0.0-0.9 INSULATION ENGINEMAN Antibody <0.2 AI 0.0-0.9 Sjogrens Antibodies (Ssa) <0.2 AI 0.0-0.9 Antichromatin Antibodies 0.3 AI 0.0-0.9 Janet-1 Antibody <0.2 AI 0.0-0.9 Sjogrens Antibodies (SSB) <0.2 AI 0.0-0.9 Centromere B Antibodies < 0.2 AI 0.0-0.9 Scleroderma Antibodies, SCL-70 0.2 AI 0.0-0.9 See below: (SEE NOTE) 12 Ua RFX Micro & Culture 08/02/2018 [facility] [address] Urine Color STRAW Yellow 13 II [address] [place] [address] [phone] Urine Clarity CLEAR Clear Urine Glucose - Dipstick NEGATIVE mg/dL Negative Urine Bilirubin - Dipstick NEGATIVE Negative Urine Ketone NEGATIVE mg/dL Negative Urine Specific [place] <= 1.005 Low 1.010-1.030 Urine Blood NEGATIVE [...] D deficiency has been defined by the [place] of Medicine and an Endocrine Society practice guideline as a level of serum 25-OH vitamin D less than 20 ng/mL (1,2). The Endocrine Society went on to further define vitamin D insufficiency as a level between 21 and 29 ng/mL (2). 1. IOM ([place] of Medicine). 2010. Dietary reference intakes for calcium and D. [place]: The National Academies Press. 2. Shereen MF, Audrey VALENZUELA, Anni RUIZ, et al. Evaluation, treatment, and prevention of vitamin D deficiency: an Endocrine Society clinical practice guideline. JCEM. 2010; 96(7):1911-30. Performed at: RN - [facility] [address] [id number] Gun Perforator Loader: Stefanie Whitfield MD, Phone: [phone] Note: Persistent reduction for 3 months [...] Sm (anti-Snell) SLE 15 - 30% --------- INSULATION ENGINEMAN Mixed Connective Tissue Disease 95% (U1 nRNP, SLE 30 - 50% anti-ribonucleoprotein) Polymyositis and/or Dermatomyositis 20% --------- Scl-70 (antiDNA Scleroderma (diffuse) 20 - 35% topoisomerase) Crest 13% --------- Janet-1 Polymyositis and/or Dermatomyositis 20 - 40% --------- Centromere B Scleroderma - Crest variant 80% Performed at: RN - [facility] [address] [id number] Gun Perforator Loader: Stefanie Whitfield MD, Phone: [phone] 13 R30.0 14 URINE, CLEAN CATCH Procedures Date Code Description Status 12/26/2018 84762 Eye Exam Est Patient Comprehensive Completed 10/24/2018 80443 Eye Exam Est Patient Comprehensive Completed 09/02/2018 45010 Eye Exam Est Patient Comprehensive Completed Medical Devices Description No Information Available Encounters Type Date Location Provider Dx Diagnosis Office Visit 12/27/2018 Family Joselin Powell PA J20.9 Acute bronchitis, 11:30a Polo CROSS unspecified 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, right eye Office Visit 12/08/2018 Ophthalmology Tay, B30.9 Viral 2:30p MD Pramod conjunctivitis, unspecified Office Visit 11/29/2018 Family Ra Zuñiga, R00.2 Palpitations 11:30a [address] J06.9 Acute upper respiratory infection, unspecified K59.00 Constipation, unspecified Office Visit 10/11/2018 11:00a Family Christopher Arnold, B37.0 Candidal Polo CROSS MD stomatitis Office Visit 09/13/2018 1:15p GI Manuelito, R10.9 Unspecified MD Pramod abdominal pain K59.00 Constipation, unspecified R63.5 Abnormal weight gain Office Visit 09/08/2018 1:00p Family Christopher Arnold B37.0 Candidal Polo CROSS MD stomatitis E55.9 Vitamin D deficiency, unspecified Office Visit 09/02/2018 1:45p Joselin Nicholas B37.0 Candidal Polo CAGLE stomatitis R68.2 Dry mouth, unspecified Office Visit 08/23/2018 11:30a Christopher Elizabeth F41.9 Anxiety disorder, Polo CROSS MD unspecified Office Visit 08/02/2018 10:15a Christopher Elizabeth, K59.00 Constipation, Polo CROSS MD unspecified R30.0 Dysuria F41.9 Anxiety disorder, unspecified Assessments Date Code Description Provider 12/27/2018 J20.9 Acute bronchitis, unspecified Joselin Zuñiga [...] Christopher Logan MD Plan of Treatment Future Appointment(s):02/02/2019 1:00 pm - Mele Davis M.D., FACC at Cardiology [id number]/16/2019 1:15 pm - Pramod Billings MD at 02/21/2019 1: 00 pm - Christopher Logan MD at [facility] Functional Status Description No Information Available Mental Status Description No Information Available Referrals Refer to Reason for Referral Status Appt Date Mele Davis MD [facility] Scheduled 02/02/[address] [place], [place] [id number] [phone]
--- OUTSIDE RECORDS SUMMARY | 2019-01-04 13:57 | XMS REPORT | Continuity of Care Document ---
:1995 External Reference #:[id number] Author Name Joselin Zuñiga PA Address [phone] [place] [address] Care Team Providers Name Role Phone Ganesh Pascual MD - Psychiatry Care Team Information Industrial Relations Specialist [phone] Noemi Benitez - Psychiatry Care Team Information Industrial Relations Specialist [phone] Joselin Zuñiga PA - Medical Care Team Information Industrial Relations Specialist [phone] Problems Active Problems Provider Date Borderline personality [...] Onset: 12/14/2017 Irritable bowel syndrome characterized by Pramdo Billings MD Onset: 2017 constipation Abdominal pain [...] - and swallow 5ml MD Shauna, 12/27/2018 165498Uomz/ML twice a day as PHD Suspension needed [...] - and swallow 5ml MD Shauna, 10/11/2018 528892Maps/ML twice a day as PHD Suspension needed [...] CPT Code Status Date Vaccine Lot # [id number] Given Unknown Tdap injection Vital Signs Date Vital Result Comment 12/27/2018 11:31am Respiratory Rate 18 /min Height 67 inches 5'7" Weight 215.00 lb BMI (Body Mass Index) 33.7 kg/m2 BSA (Body Surface Area) 2.09 m2 [place] body weight in kilograms 67 kg 11/29/2018 11:36am BP Systolic Sitting Resting Right Arm 124 mmHg BP Diastolic Sitting Resting Right Arm 72 mmHg Body Temperature 98.6 F Heart Rate 90 /min Respiratory Rate 18 /min Height 67 inches 5'7" Weight 211.25 lb BMI (Body Mass Index) 33.1 kg/m2 BSA (Body Surface Area) 2.07 m2 [place] body weight in kilograms 67 kg Results Test Acquired Date Facility Test Result H/L Range Note CBC 11/02/2018 [facility] White Blood 6.7 K/uL Normal 3.4-10.5 1 W/Automated [address] [place] [address] [phone] Red Blood Count 5.10 M/uL Normal 4.20-5.80 [...] 33.0-73.0 Lymph % 35.9 % Normal 20.0-42.0 Evangeline % 9.4 % Normal 0.0-10.0 Eo% 2.1 % Normal 0.0-6.6 Bas% 0.6 % Normal 0.0-1.1 Immature Grans 0.3 % Normal 0.0-5.0 NRBC % 0.0 /100WBC < 10/ 100 WBC Neut# 3.48 K/uL Normal 1.8-7.0 Lymph # 2.41 K/uL Normal 1.0-4.0 Ev[place] # 0.63 K/uL Normal 0.0-0.8 Eos # 0.14 K/uL Normal 0.0-0.5 Baso # 0.04 K/uL Normal 0.0-0.1 Immature Grans Absolute 0.02 K/uL NRBC # 0.00 K/uL Comprehensive 11/02/2018 [facility] Glucose 105 mg/dL Normal 74-106 Metabolic Panel [address] [place] [address] [phone] BUN 8 mg/dL Normal 7-18 Creatinine 1.0 [...] 104 U/L Normal 45-117 Laboratory test 11/02/2018 [facility] Troponin-I < 0.015 [address] ng/[place] [address] [phone] CBC W/Automated 09/17/2018 [facility] White Blood 10.8 K/uL High 3.4-[address] Count 0.5 [place] [address] [phone] Red Blood Count 5.09 M/uL Normal 4.20-5.80 [...] 33.0-73.0 Lymph % 20.0 % Normal 20.0-42.0 Ev[place]eline % 7.3 % Normal 0.0-10.0 Eo% 1.2 % Normal 0.0-6.6 Bas% 0.3 % Normal 0.0-1.1 Immature Grans 0.4 % Normal 0.0-5.0 NRBC % 0.0 /100WBC < 10/ 100 WBC Neut# 7.64 K/uL High 1.8-7.0 Lymph # 2.16 K/uL Normal 1.0-4.0 Ev[place] # 0.79 K/uL Normal 0.0-0.8 Eos # 0.13 K/uL Normal 0.0-0.5 Baso # 0.03 K/uL Normal 0.0-0.1 Immature Grans Absolute 0.04 K/uL NRBC # 0.00 K/uL Comprehensive 09/17/2018 [facility] Glucose 105 mg/dL Normal 74-106 Metabolic Panel [address] [place], [place] [address] [phone] BUN 8 mg/dL Normal 7-18 Creatinine 0.9 [...] 102 U/L Normal 45-117 Laboratory test 09/17/2018 [facility] Lipase 59 U/L Normal 56-289 finding [address] [place], [place] [address] [phone] Ua RFX Micro & 09/17/2018 [facility] Urine Color YELLOW Yellow Culture II [address] [place] [address] [phone] Urine Clarity CLEAR Clear Urine Glucose - Dipstick NEGATIVE mg/dL Negative Urine Bilirubin - Dipstick NEGATIVE Negative Urine Ketone NEGATIVE mg/dL Negative Urine Specific [place] 1.010 Normal 1.010-1.030 Urine Blood NEGATIVE Negative Urine PH 5.5 Low 6.5-7.5 Urine Protein - Dipstick NEGATIVE mg/dL Negative Urine Urobilinogen - Dipstick 0.2 E.U./dL Normal 0.2-1.0 Urine Nitrite - Dipstick NEGATIVE Negative Urine Leuk Esterase NEGATIVE Negative Source: URINE, CLEAN CAT <SEE NOTE> 6 Laboratory 09/08/2018 [facility] [address] Vitamin 10.9 Low 30.0-100.0 7, 8 test finding [address] [facility] D,25-Hydroxy ng/[place] [address] [phone] Basic [facility] Glucose 95 Normal 74-[address] mg/[place] [address] [phone] BUN 8 mg/dL Normal 7-18 Creatinine 0.9 mg/dL Normal 0.6-1.3 Glom Filtration Rate, Estimate >60 mL/min >60 If >60 mL/min >60 9 BUN/Creat 8.8 ratio Sodium 142 mmol/L Normal 136-145 Potassium 3.8 mmol/L Normal 3.5-5.1 Chloride 110 mmol/L High 98-107 Carbon Dioxide 24 mmol/L Normal 21-32 Anion Gap 8 mEq/L Normal 8-16 Calcium 8.8 mg/dL Normal 8.5-10.1 Comprehensive [place] 09/02/2018 [facility] [address] Anti-Dna <1 IU/mL 0-9 10 , [address] [place] [address] (Fzbpoc) [phone] SM Antibody <0.2 AI 0.0-0.9 LABORER [place] Antibody <0.2 AI 0.0-0.9 Sjogrens Antibodies (Ssa) <0.2 AI 0.0-0.9 Antichromatin Antibodies 0.3 AI 0.0-0.9 Janet-1 Antibody <0.2 AI 0.0-0.9 Sjogrens Antibodies (SSB) <0.2 AI 0.0-0.9 Centromere B Antibodies < 0.2 AI 0.0-0.9 Scleroderma Antibodies, SCL-70 0.2 AI 0.0-0.9 See below: (SEE NOTE) 12 Ua RFX Micro & Culture 08/02/[address] [facility] [address] Urine Color STRAW Yellow 13 II 4077 [place] [address] [phone] Urine Clarity CLEAR Clear Urine Glucose - Dipstick NEGATIVE mg/dL Negative Urine Bilirubin - Dipstick NEGATIVE Negative Urine Ketone NEGATIVE mg/dL Negative Urine Specific [place] <= 1.005 Low 1.010-1.030 Urine Blood NEGATIVE [...] D deficiency has been defined by the [place] of Medicine and an Endocrine Society practice guideline as a level of serum 25-OH vitamin D less than 20 ng/mL (1,2). The Endocrine Society went on to further define vitamin D insufficiency as a level between 21 and 29 ng/mL (2). 1. IOM ([place] of Medicine). 2010. Dietary reference intakes for calcium and D. [place]: The National Academies Press. 2. Shereen MF, Audrey VALENZUELA, Anni RUIZ, et al. Evaluation, treatment, and prevention of vitamin D deficiency: an Endocrine Society clinical practice guideline. JCEM. 2010; 96(7):1911-30. Performed at: RN - [facility] [address], [place], [place] [id number] Bakery Technician: Stefanie Whitfield MD, Phone: [phone] Note: Persistent reduction for 3 months [...] Sm (anti-Snell) SLE 15 - 30% --------- LABORER VINEYARD Mixed Connective Tissue Disease 95% (U1 nRNP, SLE 30 - 50% anti-ribonucleoprotein) Polymyositis and/or Dermatomyositis 20% --------- Scl-70 (antiDNA Scleroderma (diffuse) 20 - 35% topoisomerase) Crest 13% --------- Janet-1 Polymyositis and/or Dermatomyositis 20 - 40% --------- Centromere B Scleroderma - Crest variant 80% Performed at: RN - [facility] [address] [id number] Bakery Technician: Stefanie Whitfield MD, Phone: [phone] 13 R30.0 14 URINE, CLEAN CATCH Procedures Date Code Description Status 10/24/2018 46467 Eye Exam Est Patient Comprehensive Completed 09/02/2018 69769 Eye Exam Est Patient Comprehensive Completed Medical Devices Description No Information Available Encounters Type Date Location Provider Dx Diagnosis Office Visit 12/08/2018 Ophthalmology Pramod Tay, B30.9 Viral 2:30p conjunctivitis, unspecified Office Visit 11/29/2018 Family Medicine Joselin Baum, R00.2 Palpitations 11:30a [place] J06.9 Acute upper respiratory infection, unspecified K59.00 Constipation, unspecified Office Visit 10/11/2018 11:00a Family Medicine Christopher Logan B37.0 Candidal Polo CROSS MD stomatitis Office Visit 09/13/2018 1:15p GI Manuelito, R10.9 Unspecified MD Pramod abdominal pain K59.00 Constipation, unspecified R63.5 Abnormal weight gain Office Visit 09/08/2018 1:00p Family Christopher Arnold B37.0 Candidal Polo CROSS MD stomatitis E55.9 Vitamin D deficiency, unspecified Office Visit 09/02/2018 1:45p Family Joselin Powell B37.0 Candidal Polo CAGLE stomatitis R68.2 Dry mouth, unspecified Office Visit 08/23/2018 11:30a Family Christopher Arnold F41.9 Anxiety disorder, Polo CROSS MD unspecified Office Visit 08/02/2018 10:15a Family Christopher Arnold K59.00 Constipation, Polo CROSS MD unspecified R30.0 [...] unspecified Christopher Logan MD 08/02/2018 K59.00 Constipation, valerieified Christopher Logan MD 08/02/2018 R30.0 Dysuria Christopher Logan MD 08/02/2018 F41.9 Anxiety disorder, unspecified Christopher Logan MD Plan of Treatment Future Appointment(s):12/30/2018 12:30 pm - Pramod Tay MD at [facility]/ 05/2019 1:00 pm - Mele Davis M.D., FACC at Cardiology [id number] 1:15 pm - Pramod Billings MD at 02/21/2019 1:00 pm - Christopher [facility] MD at [facility]12/26/2018 - Pramod Tay MD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, right eyeNew Medication:Prednisolone Acetate 1 % - 1 drop right eye 4 times dailyComments:- prednisolone 1 drop right eye every 2 hours today; then:- prednisolone 1 drop right eye every 3 hours wednesday;then:- prednisolone 1 drop right eye 4 times- re-eval or wednesday- cyclopentolate (red top) 1 drop right eye at night for 3 days- will work-up as recurrenceFollow up: or wednesday return visit Functional Status Description No Information Available Mental Status Description No Information Available Referrals Refer to Reason for Referral Status Appt Date Mele Davis MD [facility] Scheduled 02/02/[address] [place] [address] [phone]
--- OUTSIDE RECORDS SUMMARY | 2019-01-04 13:57 | XMS REPORT | Continuity of Care Document ---
:1993 External Reference #:[id number] Author Name Joselin Zuñiga PA Address [address] [place] [address] Care Team Providers Name Role Phone Ganesh Pascual MD - Psychiatry Care Team Information Production Controller Noemi Benitez - Psychiatry Care Team Information Production Controller [phone] Joselin Zuñiga PA - Medical Care Team Information Production Controller [phone] Problems Active Problems Provider Date Borderline personality [...] Patient has never smoked Smoking Status Reviewed: 11/29/18 Patient has never smoked Allergies, Adverse Reactions, Alerts Active Allergies Reaction Severity Comments Date Lamotrigine unsure 02/19/2016 Sertraline 02/19/2016 Citalopram Increased anxiety 02/19/2016 Quetiapine unsure 02/19/2016 Loratadine 02/20/2016 Amoxicillin 09/02/2018 Clindamycin 09/02/2018 Medications Active Medications SIG Qnty Indications Ordering Date Provider Miralax 1 scoops in fluid 765units K59.00 Maxine Roper, 11/29/2018 3350NF Powder 1x/day Xylimelts 1 melt in mouth 3 90units Shauna Lux, 10/14/2018 550mg Disk times a day as , PHD needed Diflucan 1 tab by mouth as 1tabs Shauna Lux, 10/14/2018 150mg once can repeat , PHD Tablets in a week as needed Nystatin swish and gargle 180ml B37.0 Shauna Lux, 10/14/2018 and swallow 5ml , PHD 480556Jvob/ML twice a day as Suspension needed Artificial [...] swallow 5ml twice a MD Shauna, 10/11/2018 969255Tndo/ML day as needed PHD Suspension Augmentin ES-600 [...] CPT Code Status Date Vaccine Lot # [id number] Given Unknown Tdap injection Vital Signs Date Vital Result Comment 11/29/2018 11:36am BP Systolic Sitting Resting Right Arm 124 mmHg BP Diastolic Sitting Resting Right Arm 72 mmHg Body Temperature 98.6 F Heart Rate 90 /min Respiratory Rate 18 /min Height 67 inches 5'7" Weight 211.25 lb BMI (Body Mass Index) 33.1 kg/m2 BSA (Body Surface Area) 2.07 m2 [place] body weight in kilograms 67 kg 10/11/2018 10:59am BP Systolic 123 mmHg BP Diastolic 71 mmHg Body Temperature 97.4 F Heart Rate 88 /min Respiratory Rate 18 /min Height 67 inches 5'7" Weight 208.38 lb BMI (Body Mass Index) 32.6 kg/m2 BSA (Body Surface Area) 2.06 m2 [place] body weight in kilograms 67 kg O2 % BldC Oximetry 98 % Ra Results Test Date Facility Test Result H/L Range Note CBC 11/02/2018 [facility] White Blood 6.7 K/uL Normal 3.4-10.5 1 W/Automated [address] [place] [address] [phone] Red Blood Count 5.10 M/uL Normal 4.20-5.80 [...] 33.0-73.0 Lymph % 35.9 % Normal 20.0-42.0 [place] % 9.4 % Normal 0.0-10.0 Eo% 2.1 % Normal 0.0-6.6 Bas% 0.6 % Normal 0.0-1.1 Immature Grans 0.3 % Normal 0.0-5.0 NRBC % 0.0 /100WBC < 10/ 100 WBC Neut# 3.48 K/uL Normal 1.8-7.0 Lymph # 2.41 K/uL Normal 1.0-4.0 [place] # 0.63 K/uL Normal 0.0-0.8 Eos # 0.14 K/uL Normal 0.0-0.5 Baso # 0.04 K/uL Normal 0.0-0.1 Immature Grans Absolute 0.02 K/uL NRBC # 0.00 K/uL Comprehensive 11/02/2018 [facility] Glucose 105 mg/dL Normal 74-106 Metabolic Panel [address] [place], [place] [id number] [phone] BUN 8 mg/dL Normal 7-18 Creatinine 1.0 [...] 104 U/L Normal 45-117 Laboratory test 11/02/2018 [facility] Troponin-I < 0.015 [address] ng/[place] [address] [phone] CBC W/Automated 09/17/2018 [facility] White Blood 10.8 K/uL High 3.4-[address] Count 0.5 [place] [address] [phone] Red Blood Count 5.09 M/uL Normal 4.20-5.80 [...] 33.0-73.0 Lymph % 20.0 % Normal 20.0-42.0 [place] % 7.3 % Normal 0.0-10.0 Eo% 1.2 % Normal 0.0-6.6 Bas% 0.3 % Normal 0.0-1.1 Immature Grans 0.4 % Normal 0.0-5.0 NRBC % 0.0 /100WBC < 10/ 100 WBC Neut# 7.64 K/uL High 1.8-7.0 Lymph # 2.16 K/uL Normal 1.0-4.0 [place] # 0.79 K/uL Normal 0.0-0.8 Eos # 0.13 K/uL Normal 0.0-0.5 Baso # 0.03 K/uL Normal 0.0-0.1 Immature Grans Absolute 0.04 K/uL NRBC # 0.00 K/uL Comprehensive 09/17/2018 [facility] Glucose 105 mg/dL Normal 74-106 Metabolic Panel [address] [place] [address] [phone] BUN 8 mg/dL Normal 7-18 Creatinine 0.9 [...] 102 U/L Normal 45-117 Laboratory test 09/17/2018 [facility] Lipase 59 U/L Normal 56-289 finding [address] [place] [address] [phone] Ua RFX Micro & 09/17/2018 [facility] Urine Color YELLOW Yellow Culture II [address] [place] [address] [phone] Urine Clarity CLEAR Clear Urine Glucose - Dipstick NEGATIVE mg/dL Negative Urine Bilirubin - Dipstick NEGATIVE Negative Urine Ketone NEGATIVE mg/dL Negative Urine Specific [place] 1.010 Normal 1.010-1.030 Urine Blood NEGATIVE Negative Urine PH 5.5 Low 6.5-7.5 Urine Protein - Dipstick NEGATIVE mg/dL Negative Urine Urobilinogen - Dipstick 0.2 E.U./dL Normal 0.2-1.0 Urine Nitrite - Dipstick NEGATIVE Negative Urine Leuk Esterase NEGATIVE Negative Source: URINE, CLEAN CAT <SEE NOTE> 6 Laboratory 09/08/2018 [facility] [address] Vitamin 10.9 Low 30.0-100.0 7, 8 test finding [address] [facility] D,25-Hydroxy ng/[place] [address] [phone] Basic 09/08/2018 [facility] [address] Glucose 95 Normal 74-[address] mg/[place] [address] [phone] BUN 8 mg/dL Normal 7-18 Creatinine 0.9 mg/dL Normal 0.6-1.3 Glom Filtration Rate, Estimate >60 mL/min >60 If >60 mL/min >60 9 BUN/Creat 8.8 ratio Sodium 142 mmol/L Normal 136-145 Potassium 3.8 mmol/L Normal 3.5-5.1 Chloride 110 mmol/L High 98-107 Carbon Dioxide 24 mmol/L Normal 21-32 Anion Gap 8 mEq/L Normal 8-16 Calcium 8.8 mg/dL Normal 8.5-10.1 Comprehensive [place] 09/02/2018 [facility] [address] Anti-Dna <1 IU/mL 0-9 10 , [address] [place] [address] (Feqtkm) [phone] SM Antibody <0.2 AI 0.0-0.9 ALLIGATOR SHEAR OPERATOR Antibody <0.2 AI 0.0-0.9 Sjogrens Antibodies (Ssa) <0.2 AI 0.0-0.9 Antichromatin Antibodies 0.3 AI 0.0-0.9 Janet-1 Antibody <0.2 AI 0.0-0.9 Sjogrens Antibodies (SSB) <0.2 AI 0.0-0.9 Centromere B Antibodies < 0.2 AI 0.0-0.9 Scleroderma Antibodies, SCL-70 0.2 AI 0.0-0.9 See below: (SEE NOTE) 12 Ua RFX Micro & Culture 08/02/2018 [facility] [address] Urine Color STRAW Yellow 13 II [address] [place] [id number] [phone] Urine Clarity CLEAR Clear Urine Glucose - Dipstick NEGATIVE mg/dL Negative Urine Bilirubin - Dipstick NEGATIVE Negative Urine Ketone NEGATIVE mg/dL Negative Urine Specific [place] <= 1.005 Low 1.010-1.030 Urine Blood NEGATIVE [...] D deficiency has been defined by the [place] of Medicine and an Endocrine Society practice guideline as a level of serum 25-OH vitamin D less than 20 ng/mL (1,2). The Endocrine Society went on to further define vitamin D insufficiency as a level between 21 and 29 ng/mL (2). 1. IOM ([place] of Medicine). 2010. Dietary reference intakes for calcium and D. [place]: The National Academies Press. 2. Shereen DEL TORO, Audrey VALENZUELA, Anni RUIZ, et al. Evaluation, treatment, and prevention of vitamin D deficiency: an Endocrine Society clinical practice guideline. JCEM. 2010; 96(7):1911-30. Performed at: RN - [facility] [address] [id number] Drafter Structural: Stefanie Whitfield MD, Phone: [phone] Note: Persistent reduction for 3 months [...] Sm (anti-Snell) SLE 15 - 30% --------- ALLIGATOR SHEAR OPERATOR Mixed Connective Tissue Disease 95% (U1 nRNP, SLE 30 - 50% anti-ribonucleoprotein) Polymyositis and/or Dermatomyositis 20% --------- Scl-70 (antiDNA Scleroderma (diffuse) 20 - 35% topoisomerase) Crest 13% --------- Janet-1 Polymyositis and/or Dermatomyositis 20 - 40% --------- Centromere B Scleroderma - Crest variant 80% Performed at: RN - [facility] [address] [id number] Drafter Structural: Stefanie Whitfield MD, Phone: [phone] R30.0 14 URINE, CLEAN CATCH Procedures Date Code Description Status 10/24/2018 53003 Eye Exam Est Patient Comprehensive Completed 09/02/2018 43128 Eye Exam Est Patient Comprehensive Completed Medical Devices Description No Information Available Encounters Type Date Location Provider Dx Diagnosis Office Visit 10/11/2018 Family Medicine Christopher Logan MD B37.0 Candidal stomatitis 11:00a [place] Office Visit 09/13/2018 GI Pramod Billings, R10.9 Unspecified 1:15p abdominal pain K59.00 Constipation, unspecified R63.5 Abnormal weight gain Office Visit 09/08/2018 1:00p [facility] Medicine Christopher Logan B37.0 Candidal Polo CROSS MD stomatitis E55.9 Vitamin D deficiency, unspecified Office Visit 09/02/2018 1:45p Family Medicine Joselin Zuñiga, B37.0 Candidal Polo CAGLE stomatitis R68.2 Dry mouth, unspecified Office Visit 08/23/2018 11:30a [facility] Medicine Christopher Logan, F41.9 Anxiety disorder, Polo CROSS MD unspecified Office Visit 08/02/2018 10:15a [facility] Medicine Christopher Logan, K59.00 Constipation, Polo CROSS MD unspecified R30.0 Dysuria F41.9 Anxiety disorder, unspecified Office Visit 06/16/2018 11:30a Ophthalmology Pramod Tay, H04.123 Dry eye syndrome MD of bilateral lacrimal glands 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, right eye Office Visit 06/07/2018 2:30p [facility] Medicine Christopher Logan, R06.02 Shortness of Polo CROSS MD breath F41.9 Anxiety disorder, unspecified R53.1 Weakness Office Visit 06/02/2018 3:30p Ophthalmology Pramod Tay, H20.011 Primary MD iridocyclitis, right eye H04.123 Dry eye syndrome of bilateral lacrimal glands Assessments Date Code Description Provider 11/29/2018 R00.2 Palpitations Joselin Zuñiga PA 11/29/2018 J06.9 Acute upper respiratory infection, unspecified Joselin Zuñiga, PA 11/29/2018 K59.00 Constipation, unspecified Joselin Zuñiga, PA 10/24/2018 H04.123 Dry eye syndrome of [...] iridocyclitis, right eye Pramod Tay MD 09/02/2018 H04.123 Dry eye syndrome of bilateral lacrimal glands Pramod Tay MD 09/02/2018 R68.2 Dry mouth, unspecified Joselin Zuñiga, GURJIT 08/23/2018 F41.9 Anxiety disorder, unspecified Christopher Logan MD 08/02/2018 K59.00 Constipation, unspecified Christopher Logan MD 08/02/2018 R30.0 Dysuria Christopher Logan MD 08/02/2018 F41.9 Anxiety disorder, unspecified Christopher Logan MD 06/16/2018 H04.123 Dry eye syndrome of bilateral lacrimal glands Pramod Tay MD 06/16/2018 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, right eye Pramod Tay MD 06/07/2018 R06.02 Shortness of breath Christopher Logan MD 06/07/2018 F41.9 Anxiety disorder, unspecified Christopher Logan MD 06/07/2018 R53.1 Weakness Christopher Logan MD 06/02/2018 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 Elevate the head for sleeping.K59.00 Constipation, unspecifiedNew Medication:Miralax 3350 NF - 1 scoops in fluid 1x/ dayComments:Provide abundant water in the diet.Encourage fruits and vegetables. Regular exercise. Add Miralax daily until diarrhea occurs. Then reduce Miralax to every 2-3 days as needed to keep stool soft. Functional Status Description No Information Available Mental Status Description No Information Available Referrals Refer to Dr Reason for Referral Status Appt Date Mele Davis MD [facility] Created [address] [place] [address] [phone] Niko Freire MD Sent 03/31/[address] [place] [id number] [phone]
== END 2019-01-04 13:53 | disposition home or self-care (01) ==
LOC: UCCORT 12:29
DX: J45.909 Unspecified asthma, uncomplicated (principal); J34.89 Other specified disorders of nose and nasal sinuses; F41.9 Anxiety disorder, unspecified; F32.9 Major depressive disorder, single episode, unspecified; Z88.0 Allergy status to penicillin; Z88.1 Allergy status to other antibiotic agents; Z88.8 Allergy status to other drugs, medicaments and biological substances; Z79.899 Other long term (current) drug therapy
CPT/HCPCS: 71046; 99201; G0463

== ENCOUNTER 2019-02-14 14:16 | Emergency (ER) | payer OTHER ==
[2019-02-14 14:36] VITALS: BP 138/77
--- NOTE | 2019-02-14 14:50 | UC ---
Respiratory Complaint HPI - HPI Summary HPI Summary: 23 yo with anxiety disorder and Tourette's syndrome (one of his tics is a cough) , with 4 day history of increased mucous production provoking him to use albuterol more often, up to 4 times per day between nebs and puffs. He has no fever or shortness of breath. Mild sore throat has resolved. Mild nausea but no vomiting. - History of Current Complaint Chief Complaint: UCGeneralIllness Stated Complaint: ACHY FATIGUE NAUSEA Time Seen by Provider: 02/14/19 14:41 Hx Obtained From: Patient Onset/Duration: Sudden Onset, Lasting Days - 4 Timing: Intermittent Episodes Severity Initially: Moderate Severity Currently: Moderate Pain Intensity: 7 Character: Cough: Nonproductive Aggravating Factors: Deep Breaths Alleviating Factors: Bronchodilator Associated Signs And Symptoms: Positive: Chills - Risk Factors Pulmonary Embolism Risk Factors: Negative Cardiac Risk Factors: Negative Pseudomonas Risk Factors: Negative Tuberculosis Risk Factors: Negative - Allergies/Home Medications Allergies/Adverse Reactions: Allergies Allergy/AdvReac Type Severity Reaction Status Date / Time cetirizine [From Zyrtec] Allergy Shortness Verified 02/14/19 14:37 of Breath citalopram [From Celexa] Allergy Nausea Verified 02/14/19 14:37 clindamycin Allergy Nausea Verified 02/14/19 14:37 diphenhydramine Allergy Shortness Verified 02/14/19 14:37 [From Benadryl] of Breath fluticasone [From Flonase] Allergy Shortness Verified 02/14/19 14:37 of Breath loratadine [From Claritin] Allergy Shortness Verified 02/14/19 14:37 of Breath Penicillins Allergy Numbness Verified 02/14/19 14:37 And Tingling propranolol Allergy See Comment Verified 02/14/19 14:37 quetiapine [From Seroquel] Allergy Palpitation Verified 02/14/19 14:37 s sertraline [From Zoloft] Allergy Anxiety Verified 02/14/19 14:37 Home Medications: Home Medications Ibuprofen 100 mg PO Q6HR PRN 02/14/19 [History Confirmed 02/14/19] PMH/Surg Hx/FS Hx/Imm Hx Respiratory History: Asthma Psychological History: Anxiety, Other - Tourette's syndrome - Surgical History Surgical History: None - Family History Known Family History: Positive: Hypertension, Diabetes, Respiratory Disease - brother has asthma, Other - Mental health disorders - Social History Occupation: Disabled Alcohol Use: None Substance Use Type: None Smoking Status (MU): Never Smoked Tobacco Review of Systems All Other Systems Reviewed And Are Negative: Yes Constitutional: Positive: Fatigue Skin: Positive: Rash - hx of acne, with increased pustules on the right forearm post shaving his arms. Eyes: Positive: Negative ENT: Positive: Sore Throat - resolved., Nasal Discharge Respiratory: Positive: Cough. Negative: Shortness Of Breath Cardiovascular: Positive: Negative Gastrointestinal: Positive: Nausea Genitourinary: Positive: Negative Motor: Positive: Negative Neurovascular: Positive: Negative Musculoskeletal: Positive: Negative Neurological: Positive: Headache - on the right side of the head. States that he gets headaches easily. Psychological: Positive: Anxious, Other - discussed that Nyquil makes him feel paranoid--discussed med interactions. Is Patient Immunocompromised?: No Physical Exam Triage Information Reviewed: Yes Appearance: Ill-Appearing - looks pale and chronically unwell Vital Signs: Initial Vital Signs Temp 97.8 F 02/14/19 14:30 Pulse 80 02/14/19 14:30 Resp 16 02/14/19 14:30 BP 138/77 02/14/19 14:30 Pulse Ox 100 02/14/19 14:30 ENT: Positive: Pharynx normal. Negative: Tonsillar swelling, Tonsillar exudate Neck: Positive: Supple, Nontender, No Lymphadenopathy Respiratory Exam: Other - frequent cough Respiratory: Positive: Lungs clear, Normal breath sounds, No respiratory distress Cardiovascular: Positive: RRR, No Murmur Musculoskeletal Exam: Normal Neurological Exam: Normal Neurological: Positive: Alert Psychological Exam: Other - anxiety and tics are prominent. Skin Exam: Other - truncal inflammatory acne. with right forearm with scattered small pustules. Respiratory Course/Dx - Course Course Of Treatment: For viral URI he will continue albuterol prn and symptomatic treatment. We discussed issues of handwashing and ways to prevent illness. He will continue monitoring the rash on his arm. - Differential Dx/Diagnosis Differential Diagnosis/HQI/PQRI: Asthma, Influenza, Lower Resp Infection, Other - URI Provider Diagnosis: URI (upper respiratory infection), Asthma Discharge ED - Sign-Out/Discharge Documenting (check all that apply): Patient Departure All imaging exams completed and their final reports reviewed: Yes - Discharge Plan Condition: Stable Disposition: HOME Patient Education Materials: Upper Respiratory Infection (ED) Referrals: Joselin Zuñiga PA [Primary Care Provider] - Additional Instructions: Continue use of albuterol for relief of cough and chest congestion, but ensure that you limit to 8 puffs per day OR 4 nebules per day. One nebule is the equivalent of 4 puffs. Hot water and honey is a good way to relieve cough. You could safely use Mucinex (guifensin) 600mg twice daily to loosen phlegm in your chest. This would not interact with your medications. Avoid Nyquil use. - Billing Disposition and Condition Condition: STABLE Disposition: Home
== END 2019-02-14 15:49 | disposition home or self-care (01) ==
LOC: UCCORT 14:16
DX: J06.9 Acute upper respiratory infection, unspecified (principal); J45.909 Unspecified asthma, uncomplicated; Z88.8 Allergy status to other drugs, medicaments and biological substances; Z88.1 Allergy status to other antibiotic agents; Z88.0 Allergy status to penicillin
CPT/HCPCS: 71046; 99211; G0463